=== PATIENT | female | born 2000 | race Caucasian/White ===

== ENCOUNTER 2019-12-25 20:22 | Observation (INO) | payer OTHER, SELFPAY ==
--- NOTE | 2019-12-25 20:18 | PC.NURSE ---
pt arrived to ED with complaint of increased swelling to her lower legs and protein in her urine, Pt is 38 weeks , is a pt of Dr Winters, 98.2 100% 72 20 112/72 talked to renea in OB and discussed with her. stated to send pt over. Pt also stated she has abdo pain once in awhile and her abdomen does get hard
--- NOTE | 2019-12-25 20:22 | OBADM ---
This patient, Naima Archer, admitted to the OB room [facility] for observation. Patient/family oriented to hospital policies and general routines including ID bracelet, bed and alarms, visiting hours, pain management, procedures, bathroom and other care routines, personal items, smoking policy, room service/diet, and visiting hours. Patient/Family are encouraged to report perceived risks to care and to ask questions if they do not understand what they are told or what they should do.
[2019-12-25 20:47] VITALS: BP 117/68; PULSE 67; RESP 18; TEMP 36.3
[2019-12-25 21:08] VITALS: BMI 29.2
--- NOTE | 2020-01-03 09:26 | PM.OBTRLD ---
OB - Triage/Final Diagnosis Final Diagnosis (1) Leg edema: Code(s): R60.0 - Localized edema Status: Acute
== END 2019-12-25 21:31 | disposition home or self-care (01) ==
PROVIDERS: Admitting Provider Obstetrics & Gynecology Gynecology; PCP Obstetrics & Gynecology; Visit Provider Obstetrics & Gynecology Gynecology
DX: O12.03 Gestational edema, third trimester (principal); Z3A.37 37 weeks gestation of pregnancy
CPT/HCPCS: 99199